=== PATIENT | male | born 1945 | race Caucasian/White ===

== ENCOUNTER 2024-12-08 13:43 | Day surgery (SDC) | payer MEDICARE ==
[2024-12-07 10:24] VITALS: BMI 28.1
[~2024-12-08 13:43] MED LIST: LIDOCAINE 1% (10MG/ML) FOR IV START INTRADERMA PRN; ONDANSETRON 4 MG/2 ML VIAL IVP PRN
[2024-12-08 14:07] VITALS: RESP 16; TEMP 97.5
[2024-12-08] MEDS: IV FLUID CONTINUATION 1,000 ML IV ONE (14:07)
[2024-12-08] MEDS: LACTATED RINGERS 1,000 ML IV SCH (14:19)
[2024-12-08] MEDS ORDERED: LIDOCAINE 1% INJ 10MG/ML (20 ML MDV) ONE (14:34)
[2024-12-08] MEDS ORDERED: PROPOFOL 10 MG/ML 20 ML VIAL IV ONE (14:34)
--- NOTE | 2024-12-08 14:38 | P.GSHP ---
History of Present Illness H&P Date: 12/08/24 Chief Complaint: Change in bowel habits 79-year-old male here for colonoscopy. Patient has noticed some narrower stools. Some constipation at times. No bleeding. History of colon polyps in the past. Family history of colon cancer in his father. He believes his last colonoscopy was 4 to 5 years ago. 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 Past Anesthesia/Blood Transfusion Reactions: No Reported Reaction Smoking Status: Former smoker - Past Family History Mother Family Medical History: Cancer Additional Family Medical History / Comment(s): BREAST CA Father Family Medical History: Cancer Additional Family Medical History / Comment(s): PROSTATE CANCER Sister(s) Family Medical History: Cancer Additional Family Medical History / Comment(s): BREAST CANCER Medications and Allergies Home Medications Medication Instructions Recorded Confirmed Type Fluticasone Propion/Salmeterol 1 inhalation PO HS 10/16/15 12/08/24 History [Advair 100-50 Diskus] Allergies Allergy/AdvReac Type Severity Reaction Status Date / Time No Known Allergies Allergy Verified 12/08/24 14:04 Surgical - Exam Vital Signs Temp Pulse Resp BP Pulse Ox 97.5 F L 66 16 131/56 97 12/08/24 14:06 12/08/24 14:06 12/08/24 14:06 12/08/24 14:06 12/08/24 14:06 Physical exam: General: Well-developed, well-nourished HEENT: Normocephalic, sclerae nonicteric Abdomen: Nontender, nondistended Extremities: No edema Neuro: Alert and oriented Assessment and Plan (1) Change in bowel habits Narrative/Plan: Will proceed with colonoscopy at this time. Current Visit: Yes Status: Acute Code(s): R19.4 - CHANGE IN BOWEL HABIT SNOMED Code(s): 97848426
--- NOTE | 2024-12-08 14:50 | P.PCN ---
Date of Procedure: 12/08/24 Procedure(s) Performed: PREOPERATIVE DIAGNOSIS: Change in bowel habits POSTOPERATIVE DIAGNOSIS: Diverticulosis PROCEDURE: Colonoscopy ANESTHESIA: MAC SURGEON: Terrance Lobato M.D. SPECIMENS: None ENDOSCOPIC PROCEDURE: The patient was placed on the endoscopy table in the left decubitus position. The Olympus colonoscope was inserted into the anus and passed under direct visualization to the base of the cecum. The appendiceal orifice was visualized. From that point the scope was slowly withdrawn inspe cting all surfaces carefully. There were no neoplastic inflammatory or polypoid lesions throughout the cecum, ascending, transverse, descending, sigmoid and rectum. There was mild left-sided diverticulosis noted. Digital rectal examination was normal. The patient was taken to the recovery room in stable condition per anesthesia guidelines. RECOMMENDATIONS: Resume diet. Repeat colonoscopy 5 years.
[2024-12-08 15:14] VITALS: BP 122/74; PULSE 70
== END 2024-12-08 15:25 | disposition home or self-care (01) ==
LOC: ORWHC2ENDO 13:43
PROVIDERS: ATTEND Surgery
DX: K57.30 Diverticulosis of large intestine without perforation or abscess without bleeding (principal); J45.909 Unspecified asthma, uncomplicated; Z79.51 Long term (current) use of inhaled steroids; Z87.891 Personal history of nicotine dependence; Z86.0100 Personal history of colon polyps, unspecified; Z80.0 Family history of malignant neoplasm of digestive organs
CPT/HCPCS: 45378; J2003; J2704